=== PATIENT | female | born 1965 | race Caucasian/White ===

== ENCOUNTER 2021-03-08 12:31 | Day surgery (SDC) | payer MEDICAID ==
[~2021-03-08] VITALS: Ht 165.1 cm; Wt 113.6 kg
[~2021-03-08 12:31] MED LIST: LIDOCAINE/PF 2% 5 ML VIAL IM ONE; PROPOFOL 1% 20 ML VIAL IVP ONE; SODIUM CHLORIDE 0.9% 1,000 ML IV ONE; SODIUM CHLORIDE 0.9% 1,000 ML ONE
[2021-03-08 12:43] LABS: COVID AG,FIA SOURCE NASOPHARYNGEAL
[2021-03-08 13:27] LABS: GLUCOMETER DEV NAME(LOC) SDS.; GLUCOSE,POINT OF CARE 102 MG/DL (70-110)
[2021-03-08] MEDS ORDERED: METF-960 PO (13:47)
[2021-03-08] MEDS ORDERED: LOSA50TA37 PO (13:47)
[2021-03-08] MEDS ORDERED: ATOR40TA28 PO (13:47)
== END 2021-03-08 15:30 | disposition home or self-care (01) ==
LOC: SURGERY 12:31
PROVIDERS: ATTEND Student in an Organized Health Care Education/Training Program
DX: K22.2 Esophageal obstruction (principal); K31.89 Other diseases of stomach and duodenum; E66.01 Morbid (severe) obesity due to excess calories; K21.9 Gastro-esophageal reflux disease without esophagitis; I10 Essential (primary) hypertension; K44.9 Diaphragmatic hernia without obstruction or gangrene; Z98.890 Other specified postprocedural states; Z90.49 Acquired absence of other specified parts of digestive tract
CPT/HCPCS: 43239; 82962; 87426; C1769; C9803; J2704; J3490; J7030; 88305; 88312; 88313; 88342